=== PATIENT | female | born 1955 | race Caucasian/White ===

== ENCOUNTER 2020-07-06 06:09 | Day surgery (SDC) | payer OTHER ==
[2020-07-06] MEDS: Ringers Lactate 1,000 ML IV ONE ×2 (06:48→07:24)
[2020-07-06] MEDS ORDERED: FENTANYL CITR 100 MCG/2 ML ONE (07:22)
[2020-07-06] MEDS ORDERED: propofoL 200 MG/20 ML VIAL IV ONE ×2 (07:22→07:55)
[2020-07-06] MEDS ORDERED: LIDOCAINE 2% MPF 5 ML VIAL ONE (07:23)
[2020-07-06] MEDS ORDERED: MIDAZOLAM HCL 2 MG/2 ML INJ ONE (07:23)
[2020-07-06] MEDS ORDERED: KETOROLAC 30 MG/ML INJ ONE (07:24)
[2020-07-06] MEDS ORDERED: dexAMETHasone 10 MG/ML VIAL ONE (07:24)
[2020-07-06] MEDS ORDERED: ONDANSETRON 4 MG/2 ML VIAL ONE ×2 (07:26→09:34)
[2020-07-06] MEDS ORDERED: LIDOCAINE 1% W/EPI 1:100,000 MDV 20 ML VIAL ONE (07:29)
[2020-07-06] MEDS ORDERED: LIDOCAINE 1% MPF 30 ML VIAL ONE (07:30)
[2020-07-06] MEDS ORDERED: Phenylephrine HCl 10 MG/ML 1 ML VIAL ONE (07:48)
[2020-07-06] MEDS ORDERED: NS 0.9% VIAL 20 ML ONE ×2 (07:49→08:17)
--- NOTE | 2020-07-06 08:49 | P.BOP ---
Preoperative diagnosis: temporal pain, headache, elevated sed rate Postoperative diagnosis: same Primary procedure: temporal artery biopsy Furniture Mover Helper: NONE,NONE Estimated blood loss: <5ml Specimen: left temporal vessel Anesthesia: General Complications: None Implants: none Fluids & blood products: 900 ml crystalloid Transferred to: Recovery Room Condition: Good
[2020-07-06] MEDS: MORPHINE 4 MG/ML SYR ONE ×6 (09:24→09:54)
[2020-07-06 11:00] VITALS: TEMP 97.7
[2020-07-06 11:04] VITALS: BP 101/52; O2SAT 95
--- NOTE | 2020-07-07 08:42 | OP ---
Date of Procedure: 07/06/2020 Surgeon: Carol Goldberg MD Regional Clinical Director: None. Preoperative Diagnoses: Temporal tenderness, left otalgia, headache, elevated sedimentation rate, co ncern for temporal arteritis. Postoperative Diagnoses: Temporal tenderness, left otalgia, headache, elevated sedimentation rate, c oncern for temporal arteritis. Procedure: Left temporal artery biopsy. Indication: Maria E Colin presented with a several week history of ear pain, previously treated wit h doxycycline with partial improvement, but not resolution. On exam, her outer and middle ear appear ed normal. Her head and neck exam did not reveal any other source for her left ear pain. She did lassiter ve tenderness of her left yazidism on palpation and her erythrocyte sedimentation rate was elevated to 51. Due to her clinical and laboratory findings, concern for temporal arteritis was moderate to high and biopsy was recommended. Detail Of Procedure: The patient was brought to the operating room. She was placed under general an esthesia via LMA. The head was turned towards the right for better exposure of the left yazidism. The location of the temporal artery was identified by palpation and confirmed by Doppler. The point of the strongest Doppler signal was marked. The hair of the temporal hair tuft was parted and secured u sing a water-based gel to reduce risk of fire. A 5 mm wide area of hair was clipped in the area of t he planned incision. The surgical site was then prepped with Betadine and draped in a sterile fashio n. The Doppler was used to confirm the area of strongest signal. An incision was made through the s kin and subcutaneous tissues. A Escalera dissector was used to gently dissect through the subcutaneous tissues through the layers of fascial tissue. A vessel was noted. Doppler of that vessel revealed a brisk and pulsatile arterial signal. The vessel was also noted to have visible palpations. The ve ssel was dissected and isolated. A silk ligature was applied at the distal and proximal ends and por tion of the vessel was cut and sent for permanent pathologic evaluation. After removal of the specim en and examination on the back table, the wall of the vessel seemed thinner than typical for an arter ial vessel. Additional dissection was undertaken. The use of palpation and Doppler and visual inspe ction did not reveal any additional vessels thought to be a better candidate for the temporal artery. A separate branch vessel was identified. It had significant tortuosity. It had a visible pulsatio n and a brisk arterial Doppler signal. A small additional fragment of this vessel was similarly liga meri and sent along with the specimen. After thorough dissection and further investigation within the field, no additional vascular structures were noted that were felt to be more likely candidate for t he temporal artery and decision was made to conclude the procedure. The deep tissue layers were clos radha approximated with 4-0 Vicryl sutures. The skin was closed with Dermabond. Direct pressure was a pplied to the incision for about 5 minutes. The procedure was then concluded. The skin was cleaned and dried, and the patient was returned to care of Anesthesia for awakening and extubation in the ope rating room which proceeded without difficulty. Specimens: Left temporal vessel. Complications: None. Implants: None. Estimated Blood Loss: Less than 5 mL. Intravenous Fluids: 900 mL crystalloid. PRETTY/MODMiladys Voice ID: [id number] Report ID: [id number]
== END 2020-07-06 11:35 | disposition home or self-care (01) ==
LOC: OR 06:09
PROVIDERS: ATTEND Otolaryngology
PROC: 03BT0ZX Excision of Left Temporal Artery, Open Approach, Diagnostic (ICD-10-PCS; principal; 2020-07-06 07:30)
DX: R51 Headache (principal); H92.02 Otalgia, left ear; R70.0 Elevated erythrocyte sedimentation rate; Z11.59 Encounter for screening for other viral diseases; E07.9 Disorder of thyroid, unspecified; Z79.82 Long term (current) use of aspirin; Z79.899 Other long term (current) drug therapy
CPT/HCPCS: 93005; 88305; 37609; U0002; J2704; J2370; J2250; J3010; J1100; J7120; J2405 ×2